=== PATIENT | female | born 1990 | race Caucasian/White ===

== ENCOUNTER 2016-09-30 11:33 | Emergency (ER) | payer MEDICAID | END 2016-09-30 15:30 | disposition home or self-care (01) | LOC: D.ER 11:33 | DX: K08.89 Other specified disorders of teeth and supporting structures (principal); F17.200 Nicotine dependence, unspecified, uncomplicated ==

== ENCOUNTER 2016-12-17 16:14 | Emergency (ER) | payer MEDICAID | END 2016-12-17 16:59 | disposition home or self-care (01) | LOC: D.ER 16:14 | DX: K02.9 Dental caries, unspecified (principal); K08.89 Other specified disorders of teeth and supporting structures; F17.200 Nicotine dependence, unspecified, uncomplicated ==

== ENCOUNTER 2017-03-04 11:56 | Emergency (ER) | payer MEDICAID | END 2017-03-04 12:23 | disposition home or self-care (01) | LOC: D.ER 11:56 | DX: K02.9 Dental caries, unspecified (principal); K08.89 Other specified disorders of teeth and supporting structures; F17.200 Nicotine dependence, unspecified, uncomplicated ==

== ENCOUNTER 2017-03-14 09:09 | Emergency (ER) | payer MEDICAID | END 2017-03-14 09:42 | disposition home or self-care (01) | LOC: D.ER 09:09 | DX: K02.9 Dental caries, unspecified (principal); F17.200 Nicotine dependence, unspecified, uncomplicated ==